=== PATIENT | male | born 1995 | race Caucasian/White ===

== ENCOUNTER 2021-10-17 20:19 | Inpatient (IN) ==
[2021-10-17] MEDS ORDERED: SODIUM CHLORIDE 0.9% 1000ML 1,000 ML IV ONE (21:35)
[2021-10-17 21:58] LABS: Basophils # (auto) 0.02 K/uL (0-0.2); Basophils % (auto) 0.2 %; Eosinophils # (auto) 0.17 K/uL (0-0.5); Eosinophils % (auto) 1.4 %; Hematocrit (blood only) 43.5 % (42-52); Hemoglobin 14.5 g/dL (14.0-18.0); Immature Granulocytes # (auto) 0.05 K/uL (0.00-0.02); Immature Granulocytes % (auto) 0.4 %; Lymphocytes # (auto) 4.15 K/uL (1.2-3.4); Lymphocytes % (auto) 34.1 %; Mean Corpuscular Hemoglobin 28.3 pg (25-34); Mean Corpuscular Hgb Conc 33.3 g/dL (32-36); Mean Corpuscular Volume 84.8 fL (80-100); Mean Platelet Volume 9.6 fL (7.4-10.4); Monocytes # (auto) 1.24 K/uL (0.11-0.59); Monocytes % (auto) 10.2 %; Neutrophils # (auto) 6.53 K/uL (1.4-6.5); Neutrophils % (auto) 53.7 %; Platelet Count 268 K/uL (130-400); RDW Coefficient of Variation 15.1 % (11.5-14.5); RDW Standard Deviation 46.6 fL (36.4-46.3); Red Blood Count 5.13 M/uL (4.7-6.1); White Blood Count 12.16 K/uL (4.8-10.8)
[2021-10-17 22:23] LABS: Troponin I 0.04 ng/ml (0-0.04)
[2021-10-17 22:25] LABS: BUN Creatinine Ratio 15.8 (10-20); Creatinine Clr Calc Pharmacy 165.5 ml/min; Est GFR (African American) 143.9 ml/min; Est GFR (Non-African American) 124.2 ml/min; Potassium 3.8 mmol/L (3.5-5.1)
[2021-10-17 22:42] LABS: Albumin Globulin Ratio 1.2 (0.9-2); Albumin Level 4.1 gm/dl (3.4-5.0); Bilirubin,Total 0.3 mg/dl (0.2-1.0); Globulin 3.3 gm/dl (2.5-4.0); Total Protein 7.4 gm/dl (6.0-8.3)
[2021-10-17] MEDS ORDERED: OPTIRAY 320 125ml IV ONE (23:06)
[2021-10-17] MEDS ORDERED: LACTATED RINGER'S 1,000 ML IV ONE (23:45)
--- NOTE | 2021-10-18 00:06 | Emergency Department Note ---
History of Present Illness General Chief complaint: Arm Pain Stated complaint: L ARM SCAN REQUEST Time Seen by Provider: 10/17/21 21:26 History of Present Illness This 26-year-old prisoner presents to the ER complaining of left arm pain and swelling for the past day who recently got into lifting weights Location: Left arm Quality: Swollen Severity: Moderate Duration: Today Timing: Today Context: Patient was concerned and sent him in Modifying factors: better with rest; worse with palpation Patient denies chest pain, dyspnea, direct trauma to the area, numbness, tingling, localized weakness. No history of blood clots. He does not smoke. Patient states he has been lifting heavy weights for the past few days which is new for him. Home Medications Medication Instructions Recorded Confirmed Type metformin 500 mg tablet 500 mg PO DAILY 10/17/21 10/17/21 History mirtazapine 45 mg tablet 45 mg PO HS 10/17/21 10/17/21 History perphenazine 2 mg tablet 2 mg PO HS 10/17/21 10/17/21 History perphenazine 8 mg tablet 8 mg PO HS 10/17/21 10/17/21 History rifampin 300 mg capsule 300 mg PO BID 10/17/21 10/17/21 History sertraline 100 mg tablet 100 mg PO DAILY 10/17/21 10/17/21 History sertraline 50 mg tablet 50 mg PO DAILY 10/17/21 10/17/21 History Allergies Allergy/AdvReac Type Severity Reaction Status Date / Time No Known Allergies Allergy Verified 10/17/21 22:17 Past Med/Surg History Medical History Depression Surgical History No pertinent past surgical history Social History Smoking Status: Current every day smoker Preferred Language: Greenlandic Feels Safe at Home: Yes Review of Systems A total of 10 systems reviewed and were otherwise negative Physical Exam Vital Signs Vital Signs - 24 hr 10/17/21 20:36 10/17/21 21:22 10/17/21 21:54 Temperature 36.4 C L Temperature Source Temporal Artery Scan Pulse Rate 91 H 69 Pulse Rate [Right Finger] 64 Pulse Rhythm Regular Pulse Rhythm [Right Finger] Regular Pulse Strength [Right Finger] Normal Respiratory Rate 18 17 17 Respiratory Effort / Characteristics Non-Labored Spontaneous Respiratory Depth Normal Respiratory Pattern Regular Blood Pressure 149/102 H Blood Pressure [Right Arm] 139/86 Blood Pressure Mean 117 Blood Pressure Mean [Right Arm] 103 Blood Pressure Position [Right Arm] Lying Pulse Oximetry 97 96 96 Oxygen Delivery Method Room Air Room Air Room Air Sepsis Recent Fever Within 48 Hours No Sepsis New/Unexplained Change in Mental Status N/A Sepsis Action Taken by Nursing No Action Required 10/17/21 23:00 10/18/21 01:00 Temperature Temperature Source Pulse Rate Pulse Rate [Right Finger] 71 69 Pulse Rhythm Pulse Rhythm [Right Finger] Regular Regular Pulse Strength [Right Finger] Normal Normal Respiratory Rate 17 17 Respiratory Effort / Characteristics Non-Labored Spontaneous Non-Labored Spontaneous Respiratory Depth Normal Normal Respiratory Pattern Regular Regular Blood Pressure Blood Pressure [Right Arm] 117/91 135/76 Blood Pressure Mean Blood Pressure Mean [Right Arm] 99 95 Blood Pressure Position [Right Arm] Lying Lying Pulse Oximetry 98 97 Oxygen Delivery Method Room Air Room Air Sepsis Recent Fever Within 48 Hours Sepsis New/Unexplained Change in Mental Status Sepsis Action Taken by Nursing VITALS: Vitals are noted on the nurse's note and reviewed by myself. Vital signs stable GENERAL: Pleasant or in shackles, in no acute distress, nondiaphoretic, well- developed well-nourished. SKIN: Left bicep edematous and erythematous, the rest of the skin was without rashes, erythema, edema, or bruising. There is no tenting of the skin. Capillary reflex less than 2 seconds. HEAD: Normocephalic atraumatic. EARS: External auditory canals clear, EYES: Pupils equal round and reactive to light and accommodation. Conjunctivae without injection, sclerae without icterus. Extraocular movements intact. NOSE: Patent, turbinates without inflammation or discharge. MOUTH: Mucous membranes moist. Pharynx without erythema or exudate. Uvula midline. Airway patent. Tongue does not deviate. NECK: Supple without nuchal rigidity. No lymphadenopathy. No thyromegaly. Cervical spine is nontender. No JVD. HEART: Regular rate and rhythm LUNGS: Clear to auscultation bilaterally without wheezes, rales or rhonchi. No retractions or accessory muscle use. ABDOMEN: Positive bowel sounds x 4. Normal tympanic percussion. Soft, nontender, without masses or organomegaly. Cross sign negative. No guarding or rebound tenderness. No CVA tenderness MUSCULOSKELETAL: No muscle atrophy noted. Radial pulses +2 equal and present bilaterally. 5 out of 5 strength throughout all extremities. NEURO: Patient was alert and oriented to person place and time. Normal sensation to light and sharp touch. No focal neurological deficits. Course Administered Medications Discontinued Medications Sodium Chloride (Nss 1000ml) 1,000 mls @ 999 mls/hr IV .Q1H1M ONE Stop: 10/17/21 22:35 Last Infusion: 10/17/21 23:10 Dose: 0 mls/hr Documented by: [id number] Admin: 10/17/21 21:57 Dose: 999 mls/hr Documented by: [id number] Lactated Ringer's (Lr) 1,000 mls @ 999 mls/hr IV .Q1H1M ONE Stop: 10/18/21 00:45 Last Infusion: 10/18/21 01:52 Dose: 0 mls/hr Documented by: [id number] Admin: 10/18/21 00:39 Dose: 999 mls/hr Documented by: [id number] Ioversol (Optiray 320 125ml) 125 ml IV ONCE ONE Stop: 10/17/21 23:07 Last Admin: 10/17/21 23:06 Dose: 117 ml Documented by: [id number] Medical Decision Making Medical Records Attestation: I reviewed the patient's medical records. Home Medications Current Medication List: was personally reviewed by me Laboratory Data Attestation: I reviewed the patient's lab results. Result diagrams: 10/17/21 21:42 10/17/21 21:42 Lab Results 10/17/21 10/17/21 10/18/21 Range/Units 21:42 21:42 00:33 WBC 12.16 H (4.8-10.8) K/uL RBC 5.13 (4.7-6.1) M/uL Hgb 14.5 (14.0-18.0) g/dL Hct 43.5 (42-52) % MCV 84.8 (80-100) fL MCH 28.3 (25-34) pg MCHC 33.3 (32-36) g/dL RDW Std Deviation 46.6 H (36.4-46.3) fL RDW Coeff of Eusebio 15.1 H (11.5-14.5) % Plt Count 268 (130-400) K/uL MPV 9.6 (7.4-10.4) fL Immature Gran % (Auto) 0.4 % Neut % (Auto) 53.7 % Lymph % (Auto) 34.1 % [place] % (Auto) 10.2 % Eos % (Auto) 1.4 % Baso % (Auto) 0.2 % Neut # (Auto) 6.53 H (1.4-6.5) K/uL Lymph # (Auto) 4.15 H (1.2-3.4) K/uL [place] # (Auto) 1.24 H (0.11-0.59) K/uL Eos # (Auto) 0.17 (0-0.5) K/uL Baso # (Auto) 0.02 (0-0.2) K/uL Immature Gran # (Auto) 0.05 H (0.00-0.02) K/uL Sodium 138 (136-145) mmol/L Potassium 3.8 (3.5-5.1) mmol/L Chloride 105 (98-107) mmol/L Carbon Dioxide 26 (21-32) mmol/L Anion Gap 7 (3-11) BUN 12 (6-23) mg/dl Creatinine 0.76 (0.6-1.4) mg/dl Est Cr Clr Drug Dosing 165.5 ml/min Est GFR ( Amer) 143.9 ml/min Est GFR (Non-Af Amer) 124.2 ml/min BUN/Creatinine Ratio 15.8 (10-20) Glucose 83 (70-99(Fasting)) mg/dl Calcium 9.0 (8.5-10.1) mg/dl Total Bilirubin 0.3 (0.2-1.0) mg/dl AST 283 H (13-39) U/L ALT 67 H (7-52) U/L Alkaline Phosphatase 68 (34-104) U/L Total Creatine Kinase 02769 H (30-223) U/L Troponin I 0.04 (0-0.04) ng/ml Total Protein 7.4 (6.0-8.3) gm/dl Albumin 4.1 (3.4-5.0) gm/dl Globulin 3.3 (2.5-4.0) gm/dl Albumin/Globulin Ratio 1.2 (0.9-2) SARS-CoV-2, RNA, NAAT NEGATIVE (NEGATIVE) Imaging Data Attestation: I personally reviewed and interpreted this imaging study as follows: MDM Narrative Prior records reviewed and summarized above. Triage Nursing notes reviewed. Additional history obtained from correctional officers The patient's history was concerning for swelling and pain in the arm Differential diagnosis: Etiologies such as DVT, musculoskeletal, infection, joint effusion, trauma, lymphedema, idiopathic, CHF, as well as others were entertained.. Physical examination: The physical examination revealed no signs of infection. Neurovascularly i ntact. ER treatment provided: An order was placed for continuous cardiac monitoring. The monitor shows a rate of 60-100 with a sinus rhythm. IV fluids On reassessment the patient felt better. Diagnostics interpreted by me: The labs revealed elevated CPK, elevated LFTs Imaging studies: Preliminary Findings Only See Final Report For Complete Findings US VENOUS LEFT UPPER EXTREMITY: No venous thrombosis left upper extremity. Superficial edema, and echogenic biceps muscle, nonspecific, possible trauma or inflammation/infection. Correlate clinically, necrotizing deep space infection not excluded on this ultrasound. Radiologist: Nell Betancur M.D. Preliminary Findings Only See Final Report For Complete Findings CTA CHEST: No pulmonary embolism. Lungs are clear. Superficial edema/fluid deep to the skin left anterolateral shoulder. Compared with ultrasound left upper extremity done earlier; The arm is not inc luded in the field of view. Radiologist: Nell Betancur M.D Consultation: A consultation was placed with the hospitalist. The case was discussed and diagnostics were reviewed. The patient was evaluated in the ER for further treatment. This appears to be consistent with rhabdomyolysis. Patient was hydrated as above. Medicine was consulted. He will be evaluated for admission By the evaluation outlined above emergent etiologies such as DVT, septic joint, infection, CHF, as well as others were deemed relatively unlikely. The pt informed about the findings as listed above. All questions were answered and pleased with the treatment. The chart was completed utilizing [employer] voice recognition software. Grammatical errors, random word insertions, pronoun errors, and incomplete sentences are an occassional consequence of this system due to software limitations, ambient noise, and hardware issues. Any formal questions or concerns about the content, text, or information contained within the body of this dictation should be directly addressed to the physician wet process assistant head miller for clarification. Impression & Plan Rhabdomyolysis Discharge Plan Visit Data Chief Complaint: Arm Pain Stated Complaint: L ARM SCAN REQUEST ED Provider: Issa Lynn ED Midlevel Provider: Silva Giles Discharge Problem: Rhabdomyolysis Patient Disposition: Admitted As Inpatient Condition: Good Forms Stand Alone Forms: [employer] Prescriptions Prescriptions: No Action metformin 500 mg Tablet 500 mg PO DAILY RF: 0 perphenazine 2 mg Tablet 2 mg PO HS RF: 0 sertraline 100 mg Tablet 100 mg PO DAILY RF: 0 rifampin 300 mg Capsule 300 mg PO BID RF: 0 mirtazapine 45 mg Tablet 45 mg PO HS RF: 0 perphenazine 8 mg Tablet 8 mg PO HS RF: 0 sertraline 50 mg Tablet 50 mg PO DAILY RF: 0 Referrals Referrals: Suzanna CHOWDARY [Primary Care Provider] - Discharge Problem: Rhabdomyolysis Qualifiers: Rhabdomyolysis type: non-traumatic Qualified Code(s): M62.82 - Rhabdomyolysis
[2021-10-18] MEDS ORDERED: ACETAMINOPHEN 325 MG TAB PO PRN (03:14)
[2021-10-18] MEDS ORDERED: POLYETHYLENE (MIRALAX) 17 GM PACK PO PRN (03:14)
[2021-10-18] MEDS ORDERED: ONDANSETRON INJ 2 MG/ML 2 ML VIAL IV PRN (03:14)
--- NOTE | 2021-10-18 03:28 | History and Physical Report ---
DATE OF ADMISSION: 10/18/2021. CHIEF COMPLAINT: Left arm pain. HISTORY OF PRESENT ILLNESS: A 26-year-old male with past medical history significant for diabetes, depression, history of hidradenitis suppurativa who is [facility], comes because of left arm swelling. The patient says he was lifting weights a couple of days ago and has noticed swelling in the left arm. Denies any pain and is able to move his arm, was sent here for further evaluation. There is no DVT, but his CK was elevated at 30k, so we got called for admission. Resting comfortably and hemodynamically stable. Denies any headache, no dizziness, no blurred visions, no earache, no runny nose, no sore throat, no cough, no fever, no chills, no chest pain, no shortness of breath, no nausea, no vomiting, no abdominal pain. Normal bowel and bladder movements. ALLERGIES: No known drug allergies. PAST MEDICAL HISTORY: As mentioned. PAST SURGICAL HISTORY: Bilateral axillary lymph node dissection for infections. MEDICATIONS: The patient is on metformin 500 mg p.o. daily, Remeron 45 mg p.o. at bedtime, perphenazine 2mg daily,, perphenazine 8 mg p.o. at bedtime, rifampin 300 mg p.o. b.i.d., Zoloft 150 mg p.o. daily. FAMILY HISTORY: Significant for mother had cancer; paternal grandfather, cancer. SOCIAL HISTORY: Smokes cigarettes. Before he went to penit[facility]iary, he used to drink alcohol. Denies any drug use. REVIEW OF SYSTEMS: As per HPI. Rest of review of systems is negative. PHYSICAL EXAMINATION: GENERAL: The patient is obese, not in acute distress. VITAL SIGNS: Temperature 36.4, pulse 69, respiratory rate 17, blood pressure 135/76, oxygen 97% on room air. HEENT: Pupils equal, round and reactive to light. Oral mucosa moist. NECK: No JVD. No neck masses. CARDIOVASCULAR: S1 and S2 heard. Regular rate and rhythm. No murmur, no gallop. RESPIRATORY SYSTEM: Normal AP diameter. No accessory muscle use. No wheezing, no crackles. ABDOMEN: Soft, bowel sounds present, nontender, no distention. CENTRAL NERVOUS SYSTEM: Cranial nerves II-XII grossly intact, nonfocal. EXTREMITIES: No edema, no erythema. LABORATORY DATA: WBC 12.1, hemoglobin 14.5, hematocrit 43.5, platelets 268. Sodium 138, potassium 3.8, chloride 105, bicarbonate 26, BUN 12, creatinine 0.7, serum glucose 83, calcium 9, total bilirubin 0.3, AST 283, ALT 67, alkaline phosphatase 68. Total creatine kinase 32,813. Troponin I 0.04. Rapid COVID test negative. CT of the chest, no PE on preliminary report. Venous Doppler, no DVT on preliminary report. EKG: Normal sinus rhythm at a rate of 68, no previous EKG is available. ASSESSMENT AND PLAN: This is a 26-year-old male who presents with left arm swelling after weightlifting. 1. Left arm swelling: Rhabdomyolysis. No DVT or PE on CAT scan and Doppler. Aggressive IV fluids with normal saline 250 mL per hour. Follow the repeat CPK levels. consult orthopedics.Follow repeat AST and ALT. 2. Mental health disorder: Continue his home medications. 3. Diabetes: Hold metformin. Place on sliding scale. Follow HbA1c levels. 4.. Acne, hx of hidradenitis suppurativa as per patient. The patient is currently on rifampin. 5. Deep venous thrombosis prophylaxis: We will place on Lovenox. DISPOSITION: Admit to medical floor. Expect to [facility] back to [facility] when stable. Job ID: [id number] [facility]
[2021-10-18] MEDS ORDERED: GLUCOSE 40% GEL 15 GM TUBE PO PRN (03:30)
[2021-10-18] MEDS ORDERED: CARBOHYDRATES FOR HYPOGLYCEMIA PO PRN (03:30)
[2021-10-18] MEDS ORDERED: GLUCAGON FOR INJ 1 MG VIAL IM PRN (03:30)
[2021-10-18] MEDS ORDERED: DEXTROSE 50% 50 ML SYRINGE IV PRN (03:30)
[2021-10-18] MEDS ORDERED: GLUCOSE 10 TABS/TUBE PO PRN (03:30)
[2021-10-18] MEDS: SODIUM CHLORIDE 0.9% 1000ML 1,000 ML IV SCH ×5 (04:00→20:49)
--- NOTE | 2021-10-18 07:09 | Ultrasound Report ---
US venous doppler UE LT CLINICAL HISTORY: swollen, lifted wts PROCEDURE: Left upper extremity real-time compression venous ultrasound with Duplex and Color Doppler imaging. FINDINGS: Utilizing real-time ultrasonic imaging multiple real time high-resolution ultrasonic images of the de ep venous system were performed from the forearm through the subclavian vein including evaluation of the jugular vein. Compression real time ultrasonic imaging was performed in addition to color Dopple r imaging and duplex Doppler ultrasound with velocity spectral profile analysis. There is normal compressibility of the deep venous system from the forearm through the subclavian vei n. Normal vascular flow is currently identified. No evidence of superficial thrombosis is identified. Superficial edema is seen. There is echogenicity of the biceps muscle incidentally noted. Impression: 1. No evidence of deep venous thrombus. 2. The biceps muscle is nonspecific, may reflect trauma or infectious/inflammatory process. ACT 112: Negative or not required by law. Electronically signed by: Rashawn El M.D. 10/18/2021 7:07 AM
[2021-10-18 07:15] LABS: Basophils # (auto) 0.01 K/uL (0-0.2); Basophils % (auto) 0.1 %; Eosinophils # (auto) 0.15 K/uL (0-0.5); Eosinophils % (auto) 1.6 %; Hematocrit (blood only) 38.9 % (42-52); Hemoglobin 13.1 g/dL (14.0-18.0); Immature Granulocytes # (auto) 0.02 K/uL (0.00-0.02); Immature Granulocytes % (auto) 0.2 %; Lymphocytes # (auto) 2.75 K/uL (1.2-3.4); Lymphocytes % (auto) 29.4 %; Mean Corpuscular Hemoglobin 28.5 pg (25-34); Mean Corpuscular Hgb Conc 33.7 g/dL (32-36); Mean Corpuscular Volume 84.7 fL (80-100); Mean Platelet Volume 9.3 fL (7.4-10.4); Monocytes # (auto) 0.94 K/uL (0.11-0.59); Monocytes % (auto) 10.1 %; Neutrophils # (auto) 5.47 K/uL (1.4-6.5); Neutrophils % (auto) 58.6 %; Platelet Count 250 K/uL (130-400); RDW Coefficient of Variation 15.2 % (11.5-14.5); RDW Standard Deviation 46.5 fL (36.4-46.3); Red Blood Count 4.59 M/uL (4.7-6.1); White Blood Count 9.34 K/uL (4.8-10.8)
[2021-10-18 07:37] LABS: Anion Gap 7 (3-11); BUN Creatinine Ratio 11.9 (10-20); Blood Urea Nitrogen 8 mg/dl (6-23); Calcium 8.4 mg/dl (8.5-10.1); Carbon Dioxide 22 mmol/L (21-32); Chloride 109 mmol/L (98-107); Creatinine Clr Calc Pharmacy 187.7 ml/min; Est GFR (African American) > 150.0 ml/min; Est GFR (Non-African American) 130.8 ml/min; Estimated Average Glucose 108 mg/dl; Glucose 77 mg/dl (70-99(Fasting)); Hemoglobin A1C 5.4 % (4.5-5.6); Sodium 138 mmol/L (136-145)
[2021-10-18 07:48] LABS: Creatine Kinase 24185 U/L (30-223); Magnesium 1.8 mg/dl (1.7-2.4)
[2021-10-18] MEDS: SERTRALINE HCL 100 MG TABLET PO SCH (08:45)
[2021-10-18] MEDS: ENOXAPARIN INJ 40 MG/0.4 ML SYR SQ SCH (08:45)
--- NOTE | 2021-10-18 08:45 | CT Scan Report ---
CT angio chest PE protocol CLINICAL HISTORY: Chest Pain, eval for PE COMPARISON STUDY: No previous studies for comparison. CT DOSE: 411.28 mGy.cm TECHNIQUE: CT Angio of the chest was performed.followed by image post processing with coronal, and s agittal MIP reformats. Contrast Volume: Optiray 320, 117 ml FINDINGS: Vasculature: There is homogeneous perfusion of the pulmonary vasculature bilaterally. No intraluminal filling defects or evidence for pulmonary embolus is seen. Airway: The airway is clear. No endobronchial lesion is identified. Lungs: The lungs are clear of acute alveolar opacities, air bronchograms or pulmonary nodules. Pleura: There is no evidence for pleural effusion. There is no evidence for pneumothorax. Mediastinum: There is no evidence for pathologic adenopathy. The heart size is within normal limits. The thoracic aorta is within normal limits. There is no evidence for pericardial effusion. Upper abdomen:The adrenal glands are normal bilaterally. Osseous structures: There is no acute osseous pathology. Soft tissues: There is skin thickening and subcutaneous fluid present anterior to the left shoulder j oint. Impression: 1. No CTA evidence for pulmonary embolus. 2. No acute chest disease. 3. Skin thickening and subcutaneous fluid anterior to the left shoulder joint. ACT 112: Negative or not required by law. Electronically signed by: Uriel Lagos M.D. 10/18/2021 8:44 AM
[2021-10-18] MEDS: SERTRALINE HCL 50 MG TABLET PO SCH (08:46)
[2021-10-18] MEDS: rifAMPin 300 MG CAPSULE PO SCH ×2 (08:46→20:44)
[2021-10-18] MEDS: INSULIN ASPART PER UNIT SC SCH ×4 (09:43→21:03)
--- NOTE | 2021-10-18 13:31 | Electrocardiogram Report ---
Test Reason : Blood Pressure : / mmHG Vent. Rate : 068 BPM Atrial Rate : 068 BPM P-R Int : 158 ms QRS Dur : 084 ms QT Int : 402 ms P-R-T Axes : 024 -17 016 degrees QTc Int : 427 ms Normal sinus rhythm with sinus arrhythmia Normal ECG No previous ECGs available Confirmed by Vincent Jacobsen ([id number]) on 10/18/2021 1:31:31 PM Referred By: [facility] Confirmed By:Michael Jacobsen
--- NOTE | 2021-10-18 14:57 | Orthopedic Consultation ---
Date of Consultation October 18, 2021 Assessment & Plan (1) Edema of left forearm: Patient was evaluated in room C1. He was seen in conjunction with Dr. Cuevas, who also evaluated the patient. The majority of the evaluation time was spent by Dr. Cuevas. My total length of time with the patient is estimated at 6 minutes. Likelihood of his symptoms being related to his excessive weight lifting was discussed with the patient. Possibility of rhabdomyolysis continues to be high. Urine has not yet been obtained. He does not have any evidence for compartment syndrome at this point. We will continue to follow while he is admitted, and I had a thorough discussion with the patient about signs and symptoms of compartment syndrome. Continue with elevation, ice, hydration, and medical management per primary service. He was instructed to avoid returning to vigorous lifting until symptoms have fully resolved. He was also advised on a gradual return to activity. Supervising Physician Co-Signing Physician Notes I, Dr. Cuevas, saw and examined the patient and discussed the management with my PA. I reviewed my PAs note and agree with the documented findings and the plan of care I developed. I, Dr. Cuevas, spent 25 minutes reviewing the chart, reviewing the imaging, evaluating the patient, discussing care plan with the patient, primary service, and PA. My PA spent 6 minutes reviewing the chart, evaluating the patient and documentation. History of Present Illness Reason for Consultation: Left forearm swelling Requesting Physician: Mal Cuevas MD Attending Physician: Trinh Foss MD History of Present Illness This 26-year-old male presented to the ED with complaints of left forearm swelling that developed yesterday. Patient states he began lifting weights over the last 3 days, and has developed swelling in his left forearm. Left hand dominant. He denies any numbness or tingling. There was no trauma to the forearm. He states he may have lifted for approximately 2 hours each day, including push-ups and free weights. Patient is incarcerated. No prior history of similar episode. Allergies Allergy/AdvReac Type Severity Reaction Status Date / Time No Known Allergies Allergy Verified 10/17/21 22:17 Home Medications Medication Instructions Recorded Confirmed Type metformin 500 mg tablet 500 mg PO DAILY 10/17/21 10/17/21 History mirtazapine 45 mg tablet 45 mg PO HS 10/17/21 10/17/21 History perphenazine 2 mg tablet 2 mg PO HS 10/17/21 10/17/21 History perphenazine 8 mg tablet 8 mg PO HS 10/17/21 10/17/21 History rifampin 300 mg capsule 300 mg PO BID 10/17/21 10/17/21 History sertraline 100 mg tablet 100 mg PO DAILY 10/17/21 10/17/21 History sertraline 50 mg tablet 50 mg PO DAILY 10/17/21 10/17/21 History Patient History Medical History Depression H/O hidradenitis suppurativa Surgical History No pertinent past surgical history Family History Other Cancer Diabetes Social History Smoking Status: Former smoker Second Hand Exposure: No; Do You Dip or Chew Tobacco: No; Tobacco Cessation Education Requested by Patient: No Hx Alcohol Use: Yes Hx Substance Use: Yes Last Used Substance: Unknown Preferred Language: Kyrgyz Communication Ability: Effective Websphere Consultant Required: No Beliefs That Will Affect Care: None marital status: Unknown Current Living Situation: Other Current Living Situation Comment: [facility] current occupational status: other Other Information That Helps Us Care for You: No Feels Safe at Home: Yes Safety Concerns: Feels Safe At This Time Assistive Devices: None Review of Systems Review of Systems: All systems reviewed & are unremarkable except as noted in HPI & below Physical Exam Physical Exam: General: Well-developed, well-nourished, young male, in no acute distress. Laying on the bed. Alert and oriented. Skin: Warm and dry with good turgor. Notable circumferential edema in the left arm from the mid bicep to the hand. Skin remains soft. Nontender to touch. Mild abrasions present at the flexion crease of the elbow. No evidence of infection. No evidence of cellulitis. No erythema or warmth. Musculoskeletal: Patient has intact motor function of the shoulder, elbow, wrist, and digits. He is able to make a full fist. Strength is 5/5 for resisted flexion and extension of each of the joints. Neurologic: Gross sensation is intact across all aspects of the left arm and hand by soft touch. Peripheral pulses are 2+. Capillary refill is equal for each of the fingers > 2 sec. He has no tingling or altered sensation in the digits. Results & Data ([facility]) Vital Signs (Past 12 Hours) Vital Signs Temp Pulse Resp BP Pulse Ox 10/18/21 11:23 36.8 C 81 18 156/112 H 98 10/18/21 10:00 66 18 143/111 H 94 10/18/21 08:00 57 L 18 125/62 94 10/18/21 07:00 74 16 146/86 H 95 10/18/21 03:32 36.6 C 84 16 120/66 96 Laboratory Results CBC obtained today shows a white count of 9.3. H&H of 13.1 and 38.9. Platelets 250,000. Basic metabolic panel shows normal electrolytes. Glucose low at 69. Total CK is significantly elevated at 24,185. This is down from 32,800 yesterday. Urine has not been obtained yet. Diagnostic Findings Left arm ultrasound obtained earlier today shows no evidence of DVT. No evidence of superficial thrombosis. He does have some echogenicity of the biceps muscle as an incidental finding.
[2021-10-18] MEDS: MIRTAZAPINE SOLTAB 15 MG PO SCH (20:45)
[2021-10-18] MEDS: PERPHENAZINE 2 MG TABLET PO SCH (20:45)
[2021-10-18] MEDS ORDERED: PERPHENAZINE 8 MG PO SCH (21:00)
[2021-10-18] MEDS ORDERED: PERPHENAZINE 2 MG TABLET PO SCH (21:00)
--- NOTE | 2021-10-18 23:52 | Communication Note ---
Date of Service: October 18, 2021 Patient was seen and examined for follow-up of left upper extremity swelling. Lying in bed with no acute distress with 2 security guards at bedside. Denies any pain or discomfort. Left upper extremity Doppler showed no evidence of DVT. CTA chest showed No CTA evidence for pulmonary embolus ans Skin thickening and subcutaneous fluid anterior to the left shoulder joint. General- No acute distress Head- atraumatic Neck- supple, no JVD Lungs- clear to auscultation Heart- regular rhythm; no murmur Abdomen- normal bowel sounds, soft, nontender Extremities- no calf tenderness, LUE swelling Neuro- alert, oriented x 3; PERRL, EOMI; no facial palsy; no dysarthria Rab CK on admission above 32K, now trending down to 24K. Continue IV fluid. Will monitor CK level, will check urine myoglobin Ortho on board- No evidence of compartment syndrome and Recommend to check urine myoglobin. Continue with elevation, ice, hydration Continue monitor closely. DVT prophylaxis on Lovenox subcu
[2021-10-19] MEDS: SODIUM CHLORIDE 0.9% 1000ML 1,000 ML IV SCH ×7 (00:53→22:08)
--- NOTE | 2021-10-19 08:08 | Orthopedic Progress Note ---
Date of Service October 19, 2021 Assessment & Plan (1) Edema of left forearm: Plan: Patient was educated regarding today's findings. Continue with ice and elevation of the extremity. If labs are trending in the right direction, he may be returned to the correctional facility from an orthopedic standpoint. Continue with ice, elevation, and abstaining from vigorous physical exercise until symptoms fully resolve. Weight lifting a gradual fashion as discussed yesterday. Follow-up in the office as needed. Admission and Anticipated Discharge Date Admission Date: October 18, 2021 Supervising Physician Co-Signing Physician Notes I, Dr. Cuevas, saw and examined the patient and discussed the management with my PA. I reviewed my PAs note and agree with the documented findings and the plan of care I developed. Subjective Patient is seen in his room this morning. States his arm feels fine. He did elevated overnight. He denies any numbness or tingling. No other complaints at this point. He believes the swelling has gone down some. Physical Exam Physical Exam: General: Well-developed, well-nourished, young male, in no acute distress. Sleeping. Arouses easily. No acute distress. Skin: Warm and dry with good turgor. No rashes. Previous edema in the left arm has improved, but remains. Musculoskeletal: Patient has intact motor function of the elbow, wrist, and digits. He is able to make a full fist. Neurologic: Gross sensation is intact across all aspects of the left arm by soft touch. Radial, median, and ulnar nerve functions are intact for both motor and sensory. Peripheral pulses are 2+. Results & Data ([place]) Vital Signs (Past 12 Hours) Vital Signs Temp Pulse Resp BP Pulse Ox 10/19/21 07:16 36.7 C 69 16 134/78 97 10/18/21 22:11 36.7 C 71 16 127/69 98 Laboratory Results Urine myoglobin is pending. No updated CK level has been obtained.
[2021-10-19] MEDS: INSULIN ASPART PER UNIT SC SCH ×4 (08:09→20:37)
[2021-10-19] MEDS: rifAMPin 300 MG CAPSULE PO SCH ×2 (08:53→20:37)
[2021-10-19] MEDS: SERTRALINE HCL 100 MG TABLET PO SCH (08:53)
[2021-10-19 08:54] LABS: Anion Gap 7 (3-11); BUN Creatinine Ratio 10.5 (10-20); Blood Urea Nitrogen 6 mg/dl (6-23); Calcium 8.8 mg/dl (8.5-10.1); Carbon Dioxide 22 mmol/L (21-32); Chloride 108 mmol/L (98-107); Creatinine Clr Calc Pharmacy 220.6 ml/min; Est GFR (African American) > 150.0 ml/min; Est GFR (Non-African American) 139.7 ml/min; Glucose 74 mg/dl (70-99(Fasting)); Potassium 4.3 mmol/L (3.5-5.1); Sodium 137 mmol/L (136-145)
[2021-10-19] MEDS: ENOXAPARIN INJ 40 MG/0.4 ML SYR SQ SCH (08:54)
[2021-10-19] MEDS: SERTRALINE HCL 50 MG TABLET PO SCH (08:54)
[2021-10-19 09:14] LABS: Alanine Aminotransferase 78 U/L (7-52); Albumin Globulin Ratio 1.2 (0.9-2); Albumin Level 3.8 gm/dl (3.4-5.0); Alkaline Phosphatase 67 U/L (34-104); Aspartate Aminotransferase 323 U/L (13-39); Bilirubin,Total 0.3 mg/dl (0.2-1.0); Creatine Kinase 27972 U/L (30-223); Globulin 3.1 gm/dl (2.5-4.0); Total Protein 6.9 gm/dl (6.0-8.3)
[2021-10-19] MEDS: PERPHENAZINE 2 MG TABLET PO SCH (20:37)
[2021-10-19] MEDS: MIRTAZAPINE SOLTAB 15 MG PO SCH (20:37)
--- NOTE | 2021-10-19 23:49 | Hospitalist Progress Note ---
Date of Service October 19, 2021 Assessment & Plan (1) Rhabdomyolysis: (2) Edema of left forearm: Plan: Present on admission with LUE swelling. has been doing vigorous exercise/work out Venous Doppler of LUE showed No evidence of deep venous thrombus. The biceps muscle is nonspecific, may reflect trauma or infectious/inflammatory process. CTA chest showed no evidence for pulmonary embolus. Skin thickening and subcutaneous fluid anterior to the left shoulder joint. CK on admission above 32K, now trending down to 27K. Continue IV fluid hydration Continue monitor CK level Urine myoglobin pending Ortho on board- No evidence of compartment syndrome and Recommend to check urine myoglobin. Continue with elevation, ice, hydration Continue monitor closely. DVT px on Lovenox Code status Full code Admission and Anticipated Discharge Date Admission Date: October 18, 2021 Subjective Pt was seen and examined for follow up of LUE swelling Lying in bed with no acute distress with 2 guards at bedside Pt said that he feels much better The LUE swelling seems to improve Denies any chest pain, palpitation, dizziness and SOB Review of Systems Review of Systems: All systems reviewed & are unremarkable except as noted in Subjective Physical Exam Physical Exam: General- No acute distress Head- atraumatic Neck- supple, no JVD Lungs- clear to auscultation Heart- regular rhythm; no murmur Abdomen- normal bowel sounds, soft, nontender Extremities- no calf tenderness, LUE swelling Neuro- alert, oriented x 3; PERRL, EOMI; no facial palsy; no dysarthria Results & Data Results & Data ([facility]) Vital Signs (Past 12 Hours) Vital Signs Temp Pulse Resp BP Pulse Ox 10/19/21 22:17 36.9 C 70 16 133/76 96 10/19/21 14:41 37.3 C 66 18 151/83 H 98 (1) Rhabdomyolysis Rhabdomyolysis type: non-traumatic Qualified Code(s): M62.82 - Rhabdomyolysis
[2021-10-20] MEDS: SODIUM CHLORIDE 0.9% 1000ML 1,000 ML IV SCH ×5 (02:00→22:09)
[2021-10-20] MEDS: rifAMPin 300 MG CAPSULE PO SCH ×2 (07:44→21:00)
[2021-10-20] MEDS: SERTRALINE HCL 50 MG TABLET PO SCH (07:44)
[2021-10-20] MEDS: SERTRALINE HCL 100 MG TABLET PO SCH (07:44)
[2021-10-20] MEDS: ENOXAPARIN INJ 40 MG/0.4 ML SYR SQ SCH (07:44)
[2021-10-20 07:58] LABS: Anion Gap 6 (3-11); BUN Creatinine Ratio 10.9 (10-20); Blood Urea Nitrogen 7 mg/dl (6-23); Calcium 8.9 mg/dl (8.5-10.1); Carbon Dioxide 23 mmol/L (21-32); Chloride 110 mmol/L (98-107); Creatinine Clr Calc Pharmacy 196.5 ml/min; Est GFR (African American) > 150.0 ml/min; Est GFR (Non-African American) 133.2 ml/min; Glucose 89 mg/dl (70-99(Fasting)); Sodium 139 mmol/L (136-145)
[2021-10-20 08:18] LABS: Creatine Kinase 21737 U/L (30-223)
[2021-10-20] MEDS: INSULIN ASPART PER UNIT SC SCH ×4 (09:16→20:59)
--- NOTE | 2021-10-20 18:39 | Hospitalist Progress Note ---
Date of Service October 20, 2021 Assessment & Plan (1) Rhabdomyolysis: (2) Edema of left forearm: Plan: Present on admission with LUE swelling. has been doing vigorous exercise/work out Venous Doppler of LUE showed No evidence of deep venous thrombus. The biceps muscle is nonspecific, may reflect trauma or infectious/inflammatory process. CTA chest showed no evidence for pulmonary embolus. Skin thickening and subcutaneous fluid anterior to the left shoulder joint. CK on admission above 32K, now trending down to 27K-->21K Continue IV fluid hydration Continue monitor CK level Urine myoglobin pending Ortho on board- No evidence of compartment syndrome and Recommend to check urine myoglobin. Continue with elevation, ice, hydration Continue monitor closely. Transaminitis AST 323 and ALT 78 Continue monitor LFT DVT px on Lovenox Code status Full code Admission and Anticipated Discharge Date Admission Date: October 18, 2021 Subjective Pt was seen and examined for follow up of LUE swelling Lying in bed with no acute distress with guard at bedside Denies any chest pain, palpitation, dizziness and SOB Review of Systems Review of Systems: All systems reviewed & are unremarkable except as noted in Subjective Physical Exam Physical Exam: General- No acute distress Head- atraumatic Neck- supple, no JVD Lungs- clear to auscultation Heart- regular rhythm; no murmur Abdomen- normal bowel sounds, soft, nontender Extremities- no calf tenderness, LUE swelling Neuro- alert, oriented x 3; PERRL, EOMI; no facial palsy; no dysarthria Results & Data Results & Data ([facility]) Vital Signs (Past 12 Hours) Vital Signs Temp Pulse Resp BP Pulse Ox 10/20/21 15:24 36.9 C 56 L 18 131/76 96 10/20/21 07:26 36.7 C 63 16 113/68 97 (1) Rhabdomyolysis Rhabdomyolysis type: non-traumatic Qualified Code(s): M62.82 - Rhabdomyolysis
[2021-10-20] MEDS: PERPHENAZINE 2 MG TABLET PO SCH (21:00)
[2021-10-20] MEDS: MIRTAZAPINE SOLTAB 15 MG PO SCH (21:00)
[2021-10-21] MEDS: SODIUM CHLORIDE 0.9% 1000ML 1,000 ML IV SCH ×4 (02:53→19:46)
[2021-10-21 08:36] LABS: Anion Gap 6 (3-11); BUN Creatinine Ratio 10.4 (10-20); Blood Urea Nitrogen 7 mg/dl (6-23); Calcium 8.9 mg/dl (8.5-10.1); Carbon Dioxide 25 mmol/L (21-32); Chloride 109 mmol/L (98-107); Creatinine Clr Calc Pharmacy 187.7 ml/min; Est GFR (African American) > 150.0 ml/min; Est GFR (Non-African American) 130.8 ml/min; Glucose 86 mg/dl (70-99(Fasting)); Potassium 4.2 mmol/L (3.5-5.1); Sodium 140 mmol/L (136-145)
[2021-10-21 08:39] LABS: Alanine Aminotransferase 85 U/L (7-52); Albumin Globulin Ratio 1.2 (0.9-2); Albumin Level 3.7 gm/dl (3.4-5.0); Alkaline Phosphatase 62 U/L (34-104); Aspartate Aminotransferase 258 U/L (13-39); Bilirubin,Total 0.3 mg/dl (0.2-1.0); Globulin 3.1 gm/dl (2.5-4.0); Total Protein 6.8 gm/dl (6.0-8.3)
[2021-10-21] MEDS: SERTRALINE HCL 50 MG TABLET PO SCH (08:40)
[2021-10-21] MEDS: SERTRALINE HCL 100 MG TABLET PO SCH (08:40)
[2021-10-21] MEDS: rifAMPin 300 MG CAPSULE PO SCH ×2 (08:40→21:10)
[2021-10-21] MEDS: ENOXAPARIN INJ 40 MG/0.4 ML SYR SQ SCH (08:41)
[2021-10-21 08:50] LABS: Creatine Kinase 14747 U/L (30-223)
[2021-10-21] MEDS: INSULIN ASPART PER UNIT SC SCH ×4 (10:31→20:57)
[2021-10-21] MEDS: MIRTAZAPINE SOLTAB 15 MG PO SCH (21:10)
[2021-10-21] MEDS: PERPHENAZINE 2 MG TABLET PO SCH (21:10)
--- NOTE | 2021-10-21 23:23 | Hospitalist Progress Note ---
Date of Service October 21, 2021 Assessment & Plan (1) Rhabdomyolysis: (2) Edema of left forearm: Plan: Present on admission with LUE swelling. has been doing vigorous exercise/work out Venous Doppler of LUE showed No evidence of deep venous thrombus. The biceps muscle is nonspecific, may reflect trauma or infectious/inflammatory process. CTA chest showed no evidence for pulmonary embolus. Skin thickening and subcutaneous fluid anterior to the left shoulder joint. CK on admission above 32K, now trending down to 27K-->21K-->14K Continue IV fluid hydration Continue monitor CK level Urine myoglobin pending Ortho on board- No evidence of compartment syndrome and Recommend to check urine myoglobin. Continue with elevation, ice, hydration Continue monitor closely. Transaminitis AST 323--> 258 and ALT 78-->85 Continue monitor LFT DVT px on Lovenox Code status Full code Disposition Plan to discharge tomorrow Admission and Anticipated Discharge Date Admission Date: October 18, 2021 Subjective Pt was seen and examined for follow up of LUE swelling Lying in bed with no acute distress with guard at bedside Denies any chest pain, palpitation, dizziness and SOB Review of Systems Review of Systems: All systems reviewed & are unremarkable except as noted in Subjective Physical Exam Physical Exam: General- No acute distress Head- atraumatic Neck- supple, no JVD Lungs- clear to auscultation Heart- regular rhythm; no murmur Abdomen- normal bowel sounds, soft, nontender Extremities- no calf tenderness, LUE swelling Neuro- alert, oriented x 3; PERRL, EOMI; no facial palsy; no dysarthria Results & Data Results & Data ([facility]) Vital Signs (Past 12 Hours) Vital Signs Temp Pulse Resp BP Pulse Ox 10/21/21 23:04 36.7 C 65 18 124/67 96 10/21/21 15:39 36.7 C 59 L 16 146/89 H 97 (1) Rhabdomyolysis Rhabdomyolysis type: non-traumatic Qualified Code(s): M62.82 - Rhabdomyolysis
[2021-10-22] MEDS: SODIUM CHLORIDE 0.9% 1000ML 1,000 ML IV SCH ×2 (02:25→09:16)
[2021-10-22 07:53] LABS: Albumin Globulin Ratio 1.2 (0.9-2); Albumin Level 3.8 gm/dl (3.4-5.0); Bilirubin,Total 0.2 mg/dl (0.2-1.0); Creatinine Clr Calc Pharmacy 172.3 ml/min; Est GFR (African American) 146.3 ml/min; Est GFR (Non-African American) 126.2 ml/min; Globulin 3.1 gm/dl (2.5-4.0); Potassium 4.3 mmol/L (3.5-5.1); Total Protein 6.9 gm/dl (6.0-8.3)
[2021-10-22] MEDS: INSULIN ASPART PER UNIT SC SCH ×3 (09:08→17:49)
[2021-10-22] MEDS: ENOXAPARIN INJ 40 MG/0.4 ML SYR SQ SCH (09:16)
[2021-10-22] MEDS: rifAMPin 300 MG CAPSULE PO SCH (09:17)
[2021-10-22] MEDS: SERTRALINE HCL 100 MG TABLET PO SCH (09:17)
[2021-10-22] MEDS: SERTRALINE HCL 50 MG TABLET PO SCH (09:17)
--- NOTE | 2021-10-22 16:27 | Hospitalist Progress Note ---
Date of Service October 22, 2021 Assessment & Plan (1) Rhabdomyolysis: (2) Edema of left forearm: Plan: Present on admission with LUE swelling. has been doing vigorous exercise/work out Venous Doppler of LUE showed No evidence of deep venous thrombus. The biceps muscle is nonspecific, may reflect trauma or infectious/inflammatory process. CTA chest showed no evidence for pulmonary embolus. Skin thickening and subcutaneous fluid anterior to the left shoulder joint. CK on admission above 32K, now trending down to 27K-->21K-->14K --> 9K Urine Myoglobin less than 28 We will hold the IVF and encourage pt to increase PO fluid intake Will check CPK later and if continue trending down, will discharge Repeat CK this afternoon was 8809 case discussed with nurse (Liliane) at [facility] to check CPK and CMP on . If CPK level above 8000K on , will recommended to give 1L NS then recheck CPK level the following day Ortho on board- No evidence of compartment syndrome Continue with left forearm elevation, ice, increase oral hydration Clinically improved Transaminitis AST 323--> 258-->203 and ALT 78-->85-->87 Avoid hepatotoxic agents Check LFT on DVT px on Lovenox Code status Full code Disposition Plan to discharge today if CPK continues trending down Admission and Anticipated Discharge Date Admission Date: October 18, 2021 Subjective Pt was seen and examined for follow up of LUE swelling Lying in bed with no acute distress with guard at bedside he is very anxious to go home back to shelter today Denies any chest pain, palpitation, dizziness and SOB Review of Systems Review of Systems: All systems reviewed & are unremarkable except as noted in Subjective Physical Exam Physical Exam: General- No acute distress Head- atraumatic Neck- supple, no JVD Lungs- clear to auscultation Heart- regular rhythm; no murmur Abdomen- normal bowel sounds, soft, nontender Extremities- no calf tenderness, LUE swelling Neuro- alert, oriented x 3; PERRL, EOMI; no facial palsy; no dysarthria Results & Data Results & Data ([facility]) Vital Signs (Past 12 Hours) Vital Signs Temp Pulse Resp BP Pulse Ox 10/22/21 07:32 36.5 C 55 L 16 117/74 96 (1) Rhabdomyolysis Rhabdomyolysis type: non-traumatic Qualified Code(s): M62.82 - Rhabdomyolysis
--- NOTE | 2021-10-22 17:46 | Discharge Summary ---
Date of Service October 22, 2021 Admission HPI Per Admitting Provider HISTORY OF PRESENT ILLNESS: A 26-year-old male with past medical history significant for diabetes, depression, history of hidradenitis suppurativa who is at intermediate, comes because of left arm swelling. The patient says he was lifting weights a couple of days ago and has noticed swelling in the left arm. Denies any pain and is able to move his arm, was sent here for further evaluation. There is no DVT, but his CK was elevated at 30k, so we got called for admission. Resting comfortably and hemodynamically stable. Denies any headache, no dizziness, no blurred visions, no earache, no runny nose, no sore throat, no cough, no fever, no chills, no chest pain, no shortness of breath, no nausea, no vomiting, no abdominal pain. Normal bowel and bladder movements. Admission Exam Per Admitting Provider GENERAL: The patient is obese, not in acute distress. VITAL SIGNS: Temperature 36.4, pulse 69, respiratory rate 17, blood pressure 135/76, oxygen 97% on room air. HEENT: Pupils equal, round and reactive to light. Oral mucosa moist. NECK: No JVD. No neck masses. CARDIOVASCULAR: S1 and S2 heard. Regular rate and rhythm. No murmur, no gallop. RESPIRATORY SYSTEM: Normal AP diameter. No accessory muscle use. No wheezing, no crackles. ABDOMEN: Soft, bowel sounds present, nontender, no distention. CENTRAL NERVOUS SYSTEM: Cranial nerves II-XII grossly intact, nonfocal. EXTREMITIES: No edema, no erythema. Principal Diagnosis Rhabdomyolysis: Edema of left forearm: Transaminitis Discharge Exam General- No acute distress Head- atraumatic Neck- supple, no JVD Lungs- clear to auscultation Heart- regular rhythm; no murmur Abdomen- normal bowel sounds, soft, nontender Extremities- no calf tenderness, LUE swelling Neuro- alert, oriented x 3; PERRL, EOMI; no facial palsy; no dysarthria Discharge Data Allergies Allergy/AdvReac Type Severity Reaction Status Date / Time No Known Allergies Allergy Verified 10/17/21 22:17 Consultations 10/17/21 23:53 ED Decision to Admit Stat 10/18/21 08:00 Consult Orthopedic Surgery Routine Ordered Studies 10/17/21 21:34 US venous doppler UE LT Urgent 10/17/21 21:35 CT angio chest PE protocol Urgent CT angio chest PE protocol CLINICAL HISTORY: Chest Pain, eval for PE COMPARISON STUDY: No previous studies for comparison. CT DOSE: 411.28 mGy.cm TECHNIQUE: CT Angio of the chest was performed.followed by image post processing with coronal, and sagittal MIP reformats. Contrast Volume: Optiray 320, 117 ml FINDINGS: Vasculature: There is homogeneous perfusion of the pulmonary vasculature bilaterally. No intraluminal filling defects or evidence for pulmonary embolus is seen. Airway: The airway is clear. No endobronchial lesion is identified. Lungs: The lungs are clear of acute alveolar opacities, air bronchograms or pulmonary nodules. Pleura: There is no evidence for pleural effusion. There is no evidence for pneumothorax. Mediastinum: There is no evidence for pathologic adenopathy. The heart size is within normal limits. The thoracic aorta is within normal limits. There is no evidence for pericardial effusion. Upper abdomen:The adrenal glands are normal bilaterally. Osseous structures: There is no acute osseous pathology. Soft tissues: There is skin thickening and subcutaneous fluid present anterior to the left shoulder joint. Impression: 1. No CTA evidence for pulmonary embolus. 2. No acute chest disease. 3. Skin thickening and subcutaneous fluid anterior to the left shoulder joint. ACT 112: Negative or not required by law. Electronically signed by: Uriel Lagos M.D. 10/18/2021 8:44 AM Dictated:10/18/21838 Transcribed: 10/18/21838 US venous doppler UE LT CLINICAL HISTORY: swollen, lifted wts PROCEDURE: Left upper extremity real-time compression venous ultrasound with Duplex and Color Doppler imaging. FINDINGS: Utilizing real-time ultrasonic imaging multiple real time high-resolution ultrasonic images of the deep venous system were performed from the forearm through the subclavian vein including evaluation of the jugular vein. Compression real time ultrasonic imaging was performed in addition to color Doppler imaging and duplex Doppler ultrasound with velocity spectral profile analysis. There is normal compressibility of the deep venous system from the forearm through the subclavian vein. Normal vascular flow is currently identified. No evidence of superficial thrombosis is identified. Superficial edema is seen. There is echogenicity of the biceps muscle incidentally noted. Impression: 1. No evidence of deep venous thrombus. 2. The biceps muscle is nonspecific, may reflect trauma or infectious/inflammatory process. ACT 112: Negative or not required by law. Electronically signed by: Rashawn El M.D. 10/18/2021 7:07 AM Dictated:10/18/21705 Transcribed: 10/18/21705 Hospital Course (1) Rhabdomyolysis: (2) Edema of left forearm: Present on admission with LUE swelling. has been doing vigorous exercise/work out Venous Doppler of LUE showed No evidence of deep venous thrombus. The biceps muscle is nonspecific, may reflect trauma or infectious/inflammatory process. CTA chest showed no evidence for pulmonary embolus. Skin thickening and subcutaneous fluid anterior to the left shoulder joint. CK on admission above 32K, now trending down to 27K-->21K-->14K --> 9K Urine Myoglobin less than 28 We will hold the IVF and encourage pt to increase PO fluid intake Will check CPK later and if continue trending down, will discharge Repeat CK this afternoon was 8809 case discussed with nurse (Liliane) at [facility] to check CPK and CMP on . If CPK level above 8000K on , will recommended to give 1L NS then recheck CPK level the following day Ortho on board- No evidence of compartment syndrome Continue with left forearm elevation, ice, increase oral hydration Clinically improved Transaminitis AST 323--> 258-->203 and ALT 78-->85-->87 Avoid hepatotoxic agents Check LFT on DVT px on Lovenox Code status Full code Disposition Plan to discharge today if CPK continues trending down Total Time Total Time Spent Total Time Spent (In Minutes): Rhabdomyolysis: Edema of left forearm: Transaminitis Discharge Plan Discharge Items Patient Disposition: Correction[facility] Reason For Visit: ARM SWELLING Discharge Diagnosis: Rhabdomyolysis: Edema of left forearm: Transaminitis Condition on Discharge: Good Activity: Resume your previous activity Non-emergency contact: Primary Care Provider Call non-emergency contact if: you have any medication questions and your symptoms worsen Follow-up/Referrals: Suzanna CHOWDARY [Primary Care Provider] - Diet: Carb Consistent or DM2 Addtl Attending Provider Instructions: Your were admitted at [facility] for left forearm swelling. Your Creatine kinase (muscle enzymes) was very high. You were given IV fluid hydration Follow up with your primary care provider at [facility] within 1 week Increase oral hydration and Keep left forearm elevates Your provider will check your CK level in 3-4 days to monitor the level. If CK level is above 8000, your provider will give you 1 liter normal saline; then recheck CK level the following day Check CMP in 3-4 days to monitor your liver function and kidney function Please avoid any hepatotoxic agents Seek medical attention if symptoms worsening Pending Studies at Discharge: No Stand-Alone Forms: My [facility] Skilled Items Patient informed of condition?: Yes Discharge Level of Care: Other Communicable Disease: No Discharge Prognosis: Stable Lines: None Urinary Catheter: No Medications and DC Order Prescriptions: Continued metformin 500 mg Tablet 500 mg PO DAILY RF: 0 perphenazine 2 mg Tablet 2 mg PO HS RF: 0 sertraline 100 mg Tablet 100 mg PO DAILY RF: 0 rifampin 300 mg Capsule 300 mg PO BID RF: 0 mirtazapine 45 mg Tablet 45 mg PO HS RF: 0 perphenazine 8 mg Tablet 8 mg PO HS RF: 0 sertraline 50 mg Tablet 50 mg PO DAILY RF: 0 Discharge Orders: Discharge Order (Routine); Ordered 10/22/21 Ordered By: Trinh Foss Admission Data Admit Date/Time: 10/18/21 00:58 Attending Provider: Trinh Foss Admit Provider: Mumtaz Ingram Primary Care Provider: Suzanna CHOWDARY Other Providers: Mumtaz Ingram ; Derek Cuevas
== END 2021-10-22 19:18 | DRG 558 ==
LOC: ED 20:19 → EDINP 10-18 00:58 → 3W 10-18 15:25